=== PATIENT | male | born 1955 | race Caucasian/White ===

== ENCOUNTER 2019-06-04 07:12 | Day surgery (SDC) | payer BC ==
[~2019-06-04 07:12] MED LIST: Bupivacaine 0.5% 50 ML MDV ONE
[2019-06-04] MEDS ORDERED: Nozin Nasal Sanitizer NASBOTH ONE (08:00)
[2019-06-04] MEDS ORDERED: ceFAZolin 2 GM in Sodium Chloride 0.9% 50 ML IV ONE (08:00)
[2019-06-04] MEDS ORDERED: Lactated Ringers 1,000 ML IV SCH (08:00)
[2019-06-04] MEDS ORDERED: Ondansetron 4 MG/2 ML SDV ONE (08:34)
[2019-06-04] MEDS ORDERED: Midazolam 1 MG/ML 2 ML SDV ONE (08:34)
[2019-06-04] MEDS ORDERED: Dexamethasone 4 MG/ML SDV ONE (08:34)
[2019-06-04] MEDS ORDERED: Propofol 200 MG/20 ML SDV ONE ×2 (08:34→09:59)
[2019-06-04] MEDS ORDERED: fentaNYL 100 MCG/2 ML SDV ONE (08:34)
[2019-06-04] MEDS ORDERED: Succinylcholine 200 MG/10 ML MDV ONE (08:34)
[2019-06-04] MEDS ORDERED: Rocuronium 50 MG/5 ML Vial ONE (08:34)
[2019-06-04] MEDS ORDERED: Bupivacaine 0.5% 30 ML SDV ONE (08:38)
[2019-06-04] MEDS ORDERED: Morphine 2 MG/ML Syringe IVPUSH ONE (10:51)
--- NOTE | 2019-06-04 19:37 | OR ---
DATE OF PROCEDURE: 06/04/2019 SURGEON: Reed Singh MD PREOPERATIVE DIAGNOSES: 1. Calcific tendonitis, left shoulder. 2. Subluxation, biceps tendon, left shoulder and possible labral tear. POSTOPERATIVE DIAGNOSES: 1. Calcific tendonitis, left shoulder, supraspinous. 2. Severe biceps tendinopathy with subluxation from the bicipital groove. 3. Mild partial tear, subscapularis tendon. 4. Mild tendinopathy, articular surface rotator cuff, supraspinous and infraspinatus. 5. 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 PROCEDURE: 1. Arthroscopy, left shoulder with. a. Biceps tenotomy. b. Debridement of glenohumeral joint including labrum and mild synovitis. c. Subacromial decompression with acromioplasty. d. Excision of large calcific tendonitis deposit, anterior cuff and repair of rotator cuff secondary to defect within the cuff from the calcific tendonitis. ANESTHESIA: Interscalene block with general anesthesia. INDICATIONS: Mr. Phelan is a 63-year-old gentleman, who has been having significant pain in the left shoulder for the past couple of weeks. He reports this shoulder had some mild achy pain on occasion over the past couple of years; however, while working and lifting, recently experienced rather sudden onset of increased pain necessitating him leaving work. Examination and MRI are consistent with a large deposit of calcific tendonitis and subluxation of the biceps tendon from the groove with partial subscapularis tear. He now presents for evaluation of the joint with biceps tenotomy, debridement of labrum as needed, excision of calcific tendonitis, and repair of rotator cuff including subscapularis as necessary. Risks, benefits, and potential complications of the procedure were discussed. DESCRIPTION OF PROCEDURE: After adequate anesthesia was obtained, the patient was placed in lateral decubitus position and secured with a miranda bag positioner. Left shoulder and arm were then prepped and draped in a sterile fashion. 10 pounds of traction was placed in a shoulder traction unit. Posterior portal was established. Glenohumeral joint was inspected and this revealed some fairly significant degenerative changes throughout the joint with tattered labrum, primarily anterior and superior. Detachment of the labrum from approximately the equator up over the superior rim. Significant biceps tendinopathy with a partial-thickness tear and subluxation of the biceps out of the bicipital groove sitting in front of the subscapularis. Subscapularis itself showed a partial-thickness tear, primarily on the superior surface with the majority of the tendon intact. Mild synovitis was present throughout the joint. Articular surfaces showed significant degenerative change of the glenoid with an area of full-thickness loss anteriorly. Chondromalacia of the humeral head was noted without full-thickness loss at this point. Undersurface of the rotator cuff showed some mild fraying without full-thickness tear, particularly along the anterior aspect. Anterior portal was established. Labrum was debrided. All loose articular areas of the glenoid were also debrided. Ablation wand was used to perform a biceps tenotomy from its anchor on the superior labrum. This was allowed to retract into the groove. Undersurface of the supraspinous was very lightly debrided with a shaver and further inspected with no evidence of full-thickness tear. All loose fragments were removed. Scope was then withdrawn and placed into the subacromial space. Lateral portal was established. Bursa was resected for visualization. Mgiy-ha-mgjombiw amount of bursitis was present. Evidence of impingement on the coracoacromial ligament was noted with bruising. Coracoacromial ligament was removed from the undersurface of the acromion with the ablation wand. Anterolateral edge was delineated and a chilo was then used to perform an acromioplasty resecting the anterolateral aspect of the acromion, bevelling this medially and posteriorly. The bursal surface of the rotator cuff was inspected. This revealed no evidence of full-thickness tear. A moderate bulge or prominence in the very anterior lateral aspect of the supraspinous was noted. A spinal needle was used to probe this and calcific deposits were present within this. Shaver was used to lightly de-roof the area of the deposit and white toothpaste-like substance was expressed from the tendon consistent with a calcific tendonitis. This was debrided with a shaver. These fragments were debrided from the joint and the tendon was evaluated. This revealed a defect within the tendon from the calcific tendonitis, which resulted in only approximately 20% of the attachment of the cuff still intact on the articular side. Decision was made to proceed with repair of this. A chilo was used to lightly decorticate the tuberosity at this location. The cuff portion which was still attached, again composed of only about 20% of the thickness of the tendon, was sharply detached from the tuberosity. A Mitek Healix anchor was then placed. One limb of each of the suture pairs was then passed through the tendon, one slightly anterior and one slightly posterior. These were then tied down in standard arthroscopic technique securing the partial-thickness tear. Remainder of the cuff was intact. Scope was withdrawn. Port sites were closed in a standard fashion. Sterile dressing was applied. The patient tolerated the procedure very well. There were no complications. He was taken from the operating room in stable condition. Reed Singh MD /[id number] MTDD
== END 2019-06-04 13:00 | disposition home or self-care (01) ==
LOC: JP.SDS 07:12
PROVIDERS: ATTEND Specialist
DX: M75.32 Calcific tendinitis of left shoulder (principal); S43.082A Other subluxation of left shoulder joint, initial encounter; S46.812A Strain of other muscles, fascia and tendons at shoulder and upper arm level, left arm, initial encounter; M67.814 Other specified disorders of tendon, left shoulder; S43.492A Other sprain of left shoulder joint, initial encounter; M19.012 Primary osteoarthritis, left shoulder; M24.112 Other articular cartilage disorders, left shoulder; M65.812 Other synovitis and tenosynovitis, left shoulder; M94.212 Chondromalacia, left shoulder; M10.9 Gout, unspecified; M18.11 Unilateral primary osteoarthritis of first carpometacarpal joint, right hand; I10 Essential (primary) hypertension; E11.9 Type 2 diabetes mellitus without complications; E66.01 Morbid (severe) obesity due to excess calories; E78.5 Hyperlipidemia, unspecified; J44.1 Chronic obstructive pulmonary disease with (acute) exacerbation; E66.9 Obesity, unspecified; Z88.8 Allergy status to other drugs, medicaments and biological substances; Z68.41 Body mass index [BMI] 40.0-44.9, adult; Z91.048 Other nonmedicinal substance allergy status
CPT/HCPCS: 29822; 29826; 29827; A9270; C1713; J0330; J0690; J1100; J2250; J2270; J2405; J2704; J3010; J3490; J7050; J7120

== ENCOUNTER 2020-10-02 09:26 | Emergency (ER) | payer MEDICAID ==
[2020-10-02] MEDS ORDERED: Codeine/guaiFENesin 100mg-10 MG/5 ML Syrup 10 ML Cup PO ONE (10:09)
--- NOTE | 2020-10-02 10:12 | EDM.PDOC ---
ED HPI GENERAL MEDICAL PROBLEM - General Chief Complaint: Respiratory Problem Stated Complaint: SEVERE COUGHING Time Seen by Provider: 10/02/20 10:03 Source of Information: Reports: Patient, RN Notes Reviewed History Limitations: Reports: No Limitations - History of Present Illness INITIAL COMMENTS - FREE TEXT/NARRATIVE: 64-year-old gentleman presents emergency department today complaint of cough. He states the cough started at 4 this morning and has been difficult to overcome. He states it hurts to take a deep breath he is also 1 month out from open heart surgery he denies any chest pressure no nausea vomiting no diaphoresis no fevers - Related Data Allergies Allergy/AdvReac Type Severity Reaction Status Date / Time lisinopril Allergy Severe Anaphylactic Verified 10/02/20 09:41 Shock adhesive Allergy Rash Verified 10/02/20 09:41 adhesive tape Allergy Rash Verified 10/02/20 09:41 insulin glargine, human Allergy Rash Verified 10/02/20 09:41 recombin. a [From Lantus] Home Meds: Home Meds Insulin Detemir [Levemir] 50 unit SUBCUT BEDTIME 09/09/14 [History] Multivitamin [Multi-Vitamin Daily] 1 each PO DAILY 09/09/14 [History] metFORMIN [Glucophage] 1,000 mg PO BID 09/09/14 [History] Canagliflozin [Invokana] 100 mg PO ACBREAKFAST 07/22/20 [History] Furosemide 20 mg PO DAILY 07/22/20 [History] Potassium Citrate 20 meq PO BID 07/22/20 [History] Rosuvastatin [Crestor] 10 mg PO DAILY 07/22/20 [History] Spironolactone [Aldactone] 25 mg PO DAILY 08/03/20 [History] allopurinoL [Zyloprim] 300 mg PO DAILY 08/03/20 [History] carvediloL [Carvedilol] 12.5 mg PO BID 08/03/20 [History] Digoxin [Digox] 125 mcg PO DAILY 08/09/20 [History] Aspirin 325 mg PO DAILY 10/02/20 [History] Hydrocodone/Acetaminophen [Hydrocodon-Acetaminophen 5-325] 1 tab PO Q4H PRN 10/02/20 [History] Nitroglycerin 0.3 mg SL ASDIRECTED 10/02/20 [History] Omeprazole 20 mg PO DAILY 10/02/20 [History] Past Medical History HEENT History: Reports: Impaired Vision Cardiovascular History: Reports: Bypass, CAD Musculoskeletal History: Reports: Other (See Below) Other Musculoskeletal History: left shoulder pain Endocrine/Metabolic History: Reports: Diabetes, Type II Hematologic History: Reports: None Immunologic History: Reports: None Oncologic (Cancer) History: Reports: None Dermatologic History: Reports: None - Infectious Disease History Infectious Disease History: Reports: Chicken Pox, Shingles - Past Surgical History Head Surgeries/Procedures: Reports: None HEENT Surgical History: Reports: None Cardiovascular Surgical History: Reports: Coronary Artery Bypass Male Surgical History: Reports: Lithotripsy ([facility]) Musculoskeletal Surgical History: Reports: None, Shoulder Surgery Other Musculoskeletal Surgeries/Procedures:: left shoulder scope with SAD, RCR 06/04/19 Social & Family History - Family History Family Medical History: No Pertinent Family History - Tobacco Use Tobacco Use Status *Q: Never Tobacco User - Caffeine Use Caffeine Use: Reports: None ED ROS GENERAL - Review of Systems Review Of Systems: See Below Constitutional: Reports: No Symptoms HEENT: Reports: Sinus Problem (Postnasal drip), Throat Pain, Throat Swelling Respiratory: Reports: Cough. Denies: Sputum Cardiovascular: Reports: No Symptoms GI/Abdominal: Reports: No Symptoms ED EXAM, GENERAL - Physical Exam Exam: See Below Exam Limited By: No Limitations General Appearance: Alert, No Apparent Distress, Obese Nose: Normal Inspection, Normal Mucosa, No Blood Throat/Mouth: Normal Inspection, Normal Lips, Normal Teeth, Normal Gums, Normal Oropharynx, Normal Voice, No Airway Compromise Head: Atraumatic, Normocephalic Neck: Normal Inspection, Supple, Non-Tender, Full Range of Motion Respiratory/Chest: No Respiratory Distress, Lungs Clear, Normal Breath Sounds, No Accessory Muscle Use, Chest Non-Tender Cardiovascular: Regular Rate, Rhythm, No Murmur GI/Abdominal: Soft, Non-Tender Course - Vital Signs Last Recorded V/S: Last Vital Signs Temp 98.6 F 10/02/20 09:37 Pulse 86 10/02/20 09:37 Resp 10/02/20 09:37 BP 161/87 H 10/02/20 09:37 Pulse Ox 95 10/02/20 09:37 - Orders/Labs/Meds Orders: Active Orders 24 hr Category Date Time Status Cardiac Monitoring [RC] .As Directed Care 10/02/20 10:08 Active Chest 2V [CR] Stat Exams 10/02/20 10:09 Taken Labs: Laboratory Tests 10/02/20 10/02/20 Range/Units 10:16 10:16 WBC 8.4 (4.5-11.0) K/uL RBC 4.39 (4.30-5.90) M/uL Hgb 13.1 (12.0-15.0) g/dL Hct 40.3 (40.0-54.0) % MCV 92 (80-98) fL MCH 30 (27-31) pg MCHC 33 (32-36) % Plt Count 204 (150-400) K/uL Neut % (Auto) 72 H (36-66) % Lymph % (Auto) 15 L (24-44) % [place] % (Auto) 11 H (2-6) % Eos % (Auto) 1 L (2-4) % Baso % (Auto) 0 (0-1) % Sodium 138 L (140-148) mmol/L Potassium 4.4 (3.6-5.2) mmol/L Chloride 99 L (100-108) mmol/L Carbon Dioxide 28 (21-32) mmol/L Anion Gap 15.4 H (5.0-14.0) mmol/L BUN 14 (7-18) mg/dL Creatinine 1.1 (0.8-1.3) mg/dL Est Cr Clr Drug Dosing 67.84 mL/min Estimated GFR (MDRD) > 60 (>60) Glucose 232 H (74-106) mg/dL Calcium 9.9 (8.5-10.1) mg/dL Troponin I < 0.017 (0.000-0.056) ng/mL C-Reactive Protein 3.10 H (0.0-0.3) mg/dL Meds: Medications Discontinued Medications Generic Name Dose Route Start Last Admin Trade Name Freq PRN Reason Stop Dose Admin Al Hydroxide/Mg Hydroxide 15 0 ml 10/02/20 11:06 10/02/20 11:11 ml/ Lidocaine HCl 15 ml PO 10/02/20 11:07 15 ml ONETIME ONE Administration Al Hydroxide/Mg Hydroxide 15 0 ml 10/02/20 11:59 ml/ Lidocaine HCl 15 ml PO 10/02/20 12:00 ONETIME ONE Guaifenesin/Codeine Phosphate 10 ml 04/17/21 10:09 10/02/20 10:14 Codeine/Guaifenesin 100mg-10 Mg/5 Ml Syrup 10 Ml Cup PO 10/02/20 10:10 10 ml ONETIME ONE Administration Departure - Departure Time of Disposition: 12:01 Disposition: Home, Self-Care 01 Condition: Fair Clinical Impression: Cough, Postnasal drip - Discharge Information Instructions: Postnasal Drip Referrals: PCP,None [Primary Care Provider] - Forms: ED Department Discharge Additional Instructions: Usually GI cocktail if needed, try some of the [id number] medications for sinus congestion or try your nasal washes at home, please followup with your primary care provider in 3-5 days if not better, please call return to the emergency department with worsening of symptoms. Sepsis Event Note (ED) - Evaluation Sepsis Screening Result: No Definite Risk - Focused Exam Vital Signs: Vital Signs Temp Pulse Resp BP Pulse Ox 10/02/20 09:37 98.6 F 86 17 161/87 H 95 - My Orders Last 24 Hours: My Active Orders 10/02/20 10:08 Cardiac Monitoring [RC] .As Directed 10/02/20 10:09 Chest 2V [CR] Stat - Assessment/Plan Last 24 Hours: My Active Orders 10/02/20 10:08 Cardiac Monitoring [RC] .As Directed 10/02/20 10:09 Chest 2V [CR] Stat Plan: Assessment Acuity = acute Site and laterality = cough Etiology = probable postnasal drip Manifestations = none Location of injury = Home Lab values = CBC CMP unremarkable CRP elevated 3.1 troponin is negative chest x- ray I did review films myself I cannot appreciate any acute process, the official read from radiology is pending Plan He received minimal relief from Robitussin-AC did receive good relief from GI cocktail, he is going to try some nasal saline washes at home or some of the [id number] medications to dry up your sinuses follow-up primary care 3 to 5 days if not better This note was dictated using [employer] voice recognition software please call with any questions on syntax or grammar.
[2020-10-02] MEDS ORDERED: Alum Hydrox/Mag Hydrox/Simeth 15 ML, Lidocaine 2% 15 ML PO ONE ×4 (11:06→11:59)
--- NOTE | 2020-10-04 11:10 | CR ---
CHEST: 2 view CLINICAL HISTORY:Cough COMPARISON:2013 FINDINGS: The heart size, pulmonary vascularity and hilar structures are normal. No infiltrate effusion or pneumothorax is seen. There has been previous sternotomy. There are atherosclerotic changes in the aorta. IMPRESSION: No acute cardiopulmonary process.
== END 2020-10-02 12:13 | disposition home or self-care (01) ==
LOC: JP.ED 09:26
DX: R05 Cough (principal); R09.82 Postnasal drip; I25.10 Atherosclerotic heart disease of native coronary artery without angina pectoris; E11.9 Type 2 diabetes mellitus without complications; Z79.4 Long term (current) use of insulin; Z79.82 Long term (current) use of aspirin; Z91.048 Other nonmedicinal substance allergy status; Z88.8 Allergy status to other drugs, medicaments and biological substances
CPT/HCPCS: 36415; 71046; 80048; 84484; 85025; 86140; 99283; A9270